=== PATIENT | female | born 1960 ===

== ENCOUNTER → 2018-06-09 13:09 | Outpatient (REF) | payer BC, MEDICARE, MEDICAID, SELFPAY | LOC: LAB 13:09 | PROVIDERS: Visit Provider Otolaryngology | DX: J34.2 Deviated nasal septum (principal) | CPT/HCPCS: 87070; 87077; 87147; 87186; 87205 ==

== ENCOUNTER → 2018-07-19 13:47 | Outpatient (REF) | payer BC, MEDICARE, MEDICAID, SELFPAY | LOC: LAB 13:47 | PROVIDERS: Visit Provider Otolaryngology | DX: J34.0 Abscess, furuncle and carbuncle of nose (principal) | CPT/HCPCS: 87070; 87147; 87205 ==